=== PATIENT | female | born 1975 | race American Indian/Alaskan Native ===

== ENCOUNTER 2020-02-20 06:35 | Day surgery (SDC) | payer MEDICAID, OTHER ==
[~2020-02-20 06:35] MED LIST: BACTERIOSTATIC SODIUM CHLORIDE 0.9% 30 ML VIAL INFILTRATI ONE
[2020-02-20] MEDS ORDERED: SODIUM CHLORIDE 0.9% 1000 ML 1,000 ML IV SCH (07:00)
--- NOTE | 2020-02-20 07:38 | Anesthesia Day of Surgery ---
Anesthesia Day of Surgery - Day of Surgery Patient Examined: Yes Patient H&P Reviewed: Yes Patient is NPO: Yes
--- NOTE | 2020-02-20 07:38 | Anesthesia Consultation ---
Anesthesia Consult and Med Hx Date of service: 02/20/20 - Airway Anesthetic Teeth Evaluation: Good, Caps (#8-9) ROM Head & Neck: Adequate Mental/Hyoid Distance: Adequate Mallampati Class: Class II Intubation Access Assessment: Probably Good - Pre-Operative Health Status ASA Pre-Surgery Classification: ASA2 Proposed Anesthetic Plan: MAC - Pulmonary Hx Smoking: Yes (4 cig/day x 20 years) Hx Asthma: Yes (last use of inhaler - 3 weeks ago) - Gastrointestinal Hx Gastroesophageal Reflux Disease: Yes (dysphagea) - Other Systems Hx Alcohol Use: Yes
[2020-02-20] MEDS ORDERED: WATER FOR IRRIG STERILE 1,000 ML BOTTLE ONE (07:56)
[2020-02-20] MEDS ORDERED: SODIUM CHLORIDE 0.9% 1000 ML 1,000 ML ONE (08:01)
[2020-02-20] MEDS ORDERED: propofoL 200 MG/20 ML VIAL IV ONE ×2 (08:08→08:22)
[2020-02-20] MEDS ORDERED: LIDOCAINE MPF (2%) 20 MG/1 ML VIAL 5 ML ONE (08:08)
--- NOTE | 2020-02-20 09:13 | Procedure Note ---
Date of procedure: 02/20/20 Pre-op diagnosis: Abdominnal Pain/ Dyspepsia/ R/O colitis/ Prior H/O H.pylori gastritis Post-op diagnosis: other (Mild to Moderate Erosive Esophagitis/ R/O Eosinophilic Esophagitis/ Mild to Moderate Hiatale Hernia/ Gastritis/ R/O Celiac Disease/ Recto-Sigmoid Polyps (possibly Hyperplastic)/ R/O Microscopic colitis/ R/O ILeitis/ Minor,Internal Hemorrhoids) Procedure: EGD with Biopsy/ Colonoscopy with cold,Snare Polypectomy and Cold Biopsy Anesthesia: [facility] Surgeon: LYNDA YIP Estimated blood loss: minimal Pathology: list Specimen disposition: to lab Condition: stable Disposition: same day (Treat with PPI and prn Bentyl Avoid aspirin and NSAID for 5 days; otherwise resume home medication for. follow up in 1 to 2 weeks ([phone]).)
[2020-02-20 09:52] VITALS: BP 110/63
--- NOTE | 2020-02-20 10:03 | Post Anesthesia Evaluation ---
- Post Anesthesia Evaluation Patient Participated: Yes Airway Patent: Yes Stable Respiratory Function: Yes Nausea/Vomiting: No Temp > 96.8F: Yes Pain Manageable: Yes Adequeate Hydration: Yes Anesthesia Complications: No Block Receding Appropriately: Not Applicable Patient on Ventilator: No
--- NOTE | 2020-02-20 10:51 | Operative Report ---
PROCEDURE: EGD with biopsy. INDICATIONS: This is a 44-year-old -[place] female who has a prior history of H. pylori gastritis that was not optimally treated. She is also lately been having some dyspeptic symptoms. EGD was done to make sure that there was not any significant upper GI pathology present. DESCRIPTION OF PROCEDURE: The procedure was done after getting informed consent with MAC anesthesia. Instrument was passed through the hypopharynx into the esophagus, which showed mild to moderate distal erosive esophagitis. Biopsy was done to assess for the severity of the erosive esophagitis and also to rule out for eosinophilic esophagitis. The stomach showed a [id number]-[id number] hiatal hernia and biopsy was done from the gastric antrum, the gastric body and angular incisura to assess for H. pylori gastritis and atrophic gastritis. The pylorus was patent. The duodenum in the first and second portion appeared normal. Biopsy was done from the second part to rule out for possible celiac disease. There was minimal bleeding associated with the procedure. No complications associated with the procedure. No peptic ulcer disease was noted. ASSESSMENT: Dyspepsia, prior history of Helicobacter pylori gastritis, kjtn-cy-tjwjolug erosive esophagitis, gastritis, bxsg-os-ltefgpdj hiatal hernia, rule out eosinophilic esophagitis, rule out celiac disease. PLAN: Treat the patient with PPI, p.r.n. dose of Bentyl, avoid aspirin and aspirin-related products for the next few days. A colonoscopy is to be done for further assessment of the patient's lower abdominal pain and discomfort. The patient will be asked to avoid aspirin and aspirin-related products, but otherwise resume home medication and follow up in the office in 1-2 weeks' time. The procedure was done in the GI lab with assistance of the GI lab team, which included Mariely TOSCANO; Svetlana abrams and with assistance of anesthesia. JOB# [id number] MACHO/IZABELA
--- NOTE | 2020-02-20 10:55 | Operative Report ---
PROCEDURE: Colonoscopy. INDICATIONS: This is a 44-year-old -[place] female who had an EGD done prior to the colonoscopy. EGD had shown mild to moderate hiatal hernia, mild to moderate erosive esophagitis, gastritis. Biopsy was also done to rule out for celiac disease and eosinophilic esophagitis. DESCRIPTION OF PROCEDURE: Colonoscopy was done after getting informed consent with MAC anesthesia. Initial rectal exam was unremarkable. Instrument was passed through the rectum onto the cecum, which was identified by the ileocecal valve and the appendiceal orifice. Visualization was fair to good. The terminal ileum was intubated, showed normal mucosa. Biopsy was done to rule out for possible ileitis. Random biopsies were done from the cecum, ascending colon, transverse colon, descending colon, which otherwise showed normal mucosa without any evidence of any polyps, colitis or diverticular disease. Biopsies were done to rule out for possible microscopic colitis. In the rectosigmoid area, there were several small polyps noted that were flat, mainly removed by cold biopsy, one was removed by cold snare polypectomy. These may have been hyperplastic in type and they were retrieved and the rectum showed some minor internal hemorrhoid on the retroverted view. There was minimal bleeding associated with the procedure. No complications associated with the procedure. ASSESSMENT: Abdominal pain, rule out microscopic colitis, rule out ileitis, few small rectosigmoid polyps, minor internal hemorrhoid, possibly hyperplastic. PLAN: To treat the patient with PPI and p.r.n. dose of Bentyl because of the EGD findings of esophagitis and gastritis as well as for the history of abdominal pain. The patient will also be advised about lifestyle changes because of the presence of small to moderate hiatal hernia. There was no diverticular disease noted. The patient will be otherwise, asked to continue with home medication, but avoid aspirin and aspirin-related products for the next 4 days. The patient will be advised to follow up in the office in 1-2 weeks' time. Further treatment adjustment will be according to the biopsy findings. Procedure was done in the GI lab with assistance of the GI lab team, which included RN, Mariely Rodriguez; Svetlana abrams and with assistance of anesthesia. [facility]# [id number] MACHO/IZABELA
== END 2020-02-20 06:36 | disposition home or self-care (01) ==
LOC: GIO 06:35
DX: R10.9 Unspecified abdominal pain (principal); K52.89 Other specified noninfective gastroenteritis and colitis; R10.13 Epigastric pain; K31.89 Other diseases of stomach and duodenum; K29.50 Unspecified chronic gastritis without bleeding; K62.1 Rectal polyp; K63.89 Other specified diseases of intestine; K44.9 Diaphragmatic hernia without obstruction or gangrene; K21.00 Gastro-esophageal reflux disease with esophagitis, without bleeding; K27.9 Peptic ulcer, site unspecified, unspecified as acute or chronic, without hemorrhage or perforation; K64.8 Other hemorrhoids; F17.210 Nicotine dependence, cigarettes, uncomplicated; J45.909 Unspecified asthma, uncomplicated; Z72.89 Other problems related to lifestyle; Z79.899 Other long term (current) drug therapy; Z98.890 Other specified postprocedural states
CPT/HCPCS: 43239; 45380; 45385; 88305; 88342; J2704; J7030

== ENCOUNTER 2020-06-18 06:26 | Day surgery (SDC) | payer MEDICAID ==
[2020-06-18] MEDS ORDERED: SODIUM CHLORIDE 0.9% 1000 ML 1,000 ML IV SCH (07:00)
--- NOTE | 2020-06-18 07:34 | Anesthesia Consultation ---
Anesthesia Consult and Med Hx Date of service: 06/18/20 - Airway Anesthetic Teeth Evaluation: Good ROM Head & Neck: Adequate Mental/Hyoid Distance: Adequate Mallampati Class: Class II Intubation Access Assessment: Probably Good - Pre-Operative Health Status ASA Pre-Surgery Classification: ASA3 Proposed Anesthetic Plan: MAC - Pulmonary Hx Smoking: Yes (4 cig/day x 20 years) Hx Asthma: Yes (last use of inhaler - 3 weeks ago) Hx Respiratory Symptoms: No SOB: Yes COPD: No Home Oxygen Therapy: No Hx Pneumonia: No Hx Sleep Apnea: No - Cardiovascular System Hx Hypertension: No Hx Coronary Artery Disease: No Hx Heart Attack/AMI: No Hx Angina: No Hx Percutaneous Transluminal Coronary Angioplasty (PTCA): No Hx Cardia Arrhythmia: No Hx Pacemaker: No Hx Internal Defibrillator: No Hx Valvular Heart Disease: No Hx Heart Murmur: No Hx Peripheral Vascular Disease: No - Central Nervous System Hx Neuromuscular Disorder: No Hx Seizures: No CVA: No Hx Back Pain: Yes Hx Psychiatric Problems: Yes (anexity/depression) - Gastrointestinal Hx Ulcer: Yes Hx Gastroesophageal Reflux Disease: Yes (dysphagea) - Endocrine Hx Renal Disease: No Hx End Stage Renal Disease: No Hx Cirrhosis: No Hx Liver Disease: No Hx Insulin Dependent Diabetes: No Hx Non-Insulin Dependent Diabetes: No Hx Thyroid Disease: No Hx Hypothyroidism: No Hx Hyperthyroidism: No - Hematic Hx Anemia: Yes Hx Sickle Cell Disease: No - Other Systems Hx Alcohol Use: Yes (occ.) Hx Substance Use: No Hx Cancer: No Hx Obesity: Yes
--- NOTE | 2020-06-18 07:35 | Anesthesia Day of Surgery ---
Anesthesia Day of Surgery - Day of Surgery Patient Examined: Yes Patient H&P Reviewed: Yes Patient is NPO: Yes
[2020-06-18] MEDS ORDERED: propofoL 200 MG/20 ML VIAL IV ONE ×2 (07:48→07:53)
[2020-06-18] MEDS ORDERED: LIDOCAINE MPF (2%) 20 MG/1 ML VIAL 5 ML ONE (08:04)
--- NOTE | 2020-06-18 08:14 | Procedure Note ---
Date of procedure: 06/18/20 Pre-op diagnosis: Dysphagia and Dyspepsia Post-op diagnosis: other (Mild, Benign Esophageal Stenosis (s/p Esophageal dilation)/Mild toModerate Erosive Esophagitis/ Gastritis/R/O Eosinophilic Esophagitis/ R/O Celiac Disease) Procedure: EGD with Cold Biopsy and s/p Esophageal Balloon dilation (20mm Balloon) Anesthesia: MAC Surgeon: LYNDA YIP Estimated blood loss: minimal Pathology: list Specimen disposition: to lab Condition: stable Disposition: same day (Avoid aspirin and NSAID for 4 days; otherwise resume home medication and treat patient with PPI and Reglan and have patient follow up in 1 to 2 weeks ([phone]).)
--- NOTE | 2020-06-18 08:22 | Operative Report ---
PROCEDURE: Esophagogastroduodenoscopy with biopsy. INDICATIONS: This is a 44-year-old female who recently has had her gallbladder taken out because of poor ejection fraction of the gallbladder. She has been having persistent dyspeptic symptoms as well as dysphagia. EGD was done to make sure there was not any significant upper GI pathology present. DESCRIPTION OF PROCEDURE: The procedure was done after getting informed consent with MAC anesthesia. Instrument was passed through the hypopharynx into the esophagus, which showed some mild benign esophageal stenosis. This is dilated at the end of the procedure with a 20 mm balloon that was maintained for a minute. There was some distal esophagitis also present. Biopsy was done from the distal esophagus to assess for the severity of the erosive esophagitis and from the mid esophagus to assess for eosinophilic esophagitis. The stomach showed antral gastritis. There were no ulcers noted within the gastric or the duodenal lumen. The pylorus was patent. The duodenum in the first and second portion appeared normal. Biopsy was done from the second part of the duodenum to rule out for celiac disease. Additional biopsy was done from the gastric antrum, gastric body and angular incisura to assess for H. pylori gastritis and atrophic gastritis. There was minimal bleeding associated with the procedure. No complications associated with the procedure. ASSESSMENT: Dysphagia, dyspepsia, mild benign esophageal stenosis, mild to moderate erosive esophagitis, gastritis, rule out eosinophilic esophagitis, rule out celiac disease. No peptic ulcer disease noted. PLAN: To treat the patient with PPI and Reglan. Avoid aspirin and aspirin-related products for the next 4-5 days and have the patient follow up in the office in 1-2 weeks' time. The procedure was done in the GI lab with assistance of the GI lab team, which included RN, Mariely Rodriguez and aliza Roman and with assistance of anesthesia. JOB# [id number] MACHO/IZABELA
[2020-06-18 09:05] VITALS: BP 113/74
--- NOTE | 2020-06-18 10:07 | Post Anesthesia Evaluation ---
- Post Anesthesia Evaluation Patient Participated: Yes Airway Patent: Yes Stable Respiratory Function: Yes Nausea/Vomiting: No Temp > 96.8F: Yes Pain Manageable: Yes Adequeate Hydration: Yes Anesthesia Complications: No
== END 2020-06-18 06:27 | disposition home or self-care (01) ==
LOC: GIO 06:26
DX: R13.10 Dysphagia, unspecified (principal); K30 Functional dyspepsia; K22.2 Esophageal obstruction; K29.80 Duodenitis without bleeding; K29.50 Unspecified chronic gastritis without bleeding; K21.00 Gastro-esophageal reflux disease with esophagitis, without bleeding; F17.210 Nicotine dependence, cigarettes, uncomplicated; J45.909 Unspecified asthma, uncomplicated; E66.9 Obesity, unspecified; Z68.30 Body mass index [BMI] 30.0-30.9, adult; Z72.89 Other problems related to lifestyle; Z79.899 Other long term (current) drug therapy; Z86.2 Personal history of diseases of the blood and blood-forming organs and certain disorders involving the immune mechanism
CPT/HCPCS: 43239; 43249; 81025; 88305; 88342; C1726; J2704; J7030